=== PATIENT | female | born 1965 | race African-American/Black ===

== ENCOUNTER 2017-12-11 11:23 | Inpatient (IN) ==
[2017-12-11] MEDS ORDERED: ALBUTEROL/IPRATROPIUM 3 ML NEB RESP TX STA (11:57)
[2017-12-11] MEDS ORDERED: methylPREDNISolone SOD SUC 125 MG/2 ML VIAL IV STA (11:57)
[2017-12-11] MEDS ORDERED: ALBUTEROL 2.5 MG/3 ML NEB RESP TX STA ×2 (11:58)
[2017-12-11 12:24] LABS: Basophils % 0.7 % (0.0-0.8); Eosinophils # 0.4 10*3/uL (0.0-0.87); Eosinophils % 8.7 % (0.00-10.9); Hematocrit 35.4 VOL% (35.7-47.0); Hemoglobin 11.7 GM/DL (12.0-16.0); Immature Granulocytes % 0.2 %; Immature Granulocytes Absolute 0.01 #; Lymphocytes # 1.2 10*3/uL (1.4-4.0); Lymphocytes % 28.6 % (21.3-54.2); Mean Corpuscular HGB Conc 33.1 GM/DL (32-36); Mean Corpuscular Hemoglobin 26 PG (27-34); Mean Corpuscular Volume 79.6 FL (87-102); Mean Platelet Volume 10.4 FL (9.6-12.0); Monocytes # 0.6 10*3/uL (0.11-0.8); Monocytes % 15.1 % (1.7-12.7); Neutrophils # 1.9 10*3/uL (1.4-7.4); Neutrophils % 46.7 % (38.7-73.9); Platelet Count 215 T/CUMM (130-400); Red Blood Count 4.45 MC/CUMM (3.8-5.5); Red Cell Distribution Width 14.2 % (9.3-17.3); White Blood Count 4.2 T/CUMM (4-12)
[2017-12-11 12:40] LABS: Apearance,Urine CLEAR (Clear); Bilirubin,Urine Negative (Negative); Blood, Urine Small mg/dL (Negative); Glucose,Urine (UA) Negative (Negative); Ketones,Urine Negative (Negative); Nitrite,Urine Negative (Negative); Protein,Urine 100 MG/DL; Squamous Epithelial Cell,Urine Occasional /HPF (0-10); Urine Color Straw (Yellow); Urine Specific Gravity 1.005 (1.001-1.035); Urine Urobilinogen < 2.0 EU/DL (0.2-1.0); WBC,Urine <1 /HPF (0-6)
[2017-12-11 12:46] LABS: Band Neutrophils 2 % (0-10); Eosinophils 7 % (0-10); Hypochromasia 1+; Lymphocytes 24 % (20-55); Microcytosis 1+; Segmented Neutrophils 57 % (50-85); Total Cells Counted 100
[2017-12-11 12:47] LABS: Platelet Estimate Normal
[2017-12-11 12:48] LABS: Calcium 8.6 MG/DL (8.5-10.1); Potassium 4.2 MMOL/L (3.5-5.1)
[2017-12-11] MEDS ORDERED: ACETAMINOPHEN 325 MG TABLET PO PRN (14:02)
[2017-12-11] MEDS ORDERED: ONDANSETRON 4 MG/2 ML VIAL IV PRN (14:02)
[2017-12-11] MEDS ORDERED: ALBUTEROL 2.5 MG/3 ML NEB RESP TX PRN (15:20)
[2017-12-11] MEDS: methylPREDNISolone SOD SUC 125 MG/2 ML VIAL IV SCH (18:30)
[2017-12-11] MEDS: MONTELUKAST 10 MG TABLET PO SCH (20:22)
[2017-12-11] MEDS: ALBUTEROL 2.5 MG/3 ML NEB RESP TX PRN (23:05)
[2017-12-12] MEDS: methylPREDNISolone SOD SUC 125 MG/2 ML VIAL IV SCH ×4 (01:59→19:09)
[2017-12-12 05:22] LABS: Hematocrit 33.6 VOL% (35.7-47.0); Hemoglobin 11.4 GM/DL (12.0-16.0); Immature Granulocytes Absolute 0.04 #; Lymphocytes # 0.8 10*3/uL (1.4-4.0); Lymphocytes % 19.7 % (21.3-54.2); Mean Corpuscular HGB Conc 33.9 GM/DL (32-36); Mean Corpuscular Hemoglobin 26 PG (27-34); Mean Corpuscular Volume 77.1 FL (87-102); Mean Platelet Volume 11.2 FL (9.6-12.0); Monocytes # 0.1 10*3/uL (0.11-0.8); Monocytes % 1.9 % (1.7-12.7); Neutrophils # 3.2 10*3/uL (1.4-7.4); Neutrophils % 77.4 % (38.7-73.9); Platelet Count 226 T/CUMM (130-400); Red Blood Count 4.36 MC/CUMM (3.8-5.5); White Blood Count 4.1 T/CUMM (4-12)
[2017-12-12 05:39] LABS: Calcium 8.5 MG/DL (8.5-10.1); Osmolality,Calculated 283.4 MOS/KG (273-304); Potassium 4.1 MMOL/L (3.5-5.1)
[2017-12-12 06:00] LABS: Hypochromasia 1+; Microcytosis 1+; Platelet Estimate Normal
[2017-12-12] MEDS: ALBUTEROL 2.5 MG/3 ML NEB RESP TX PRN (06:06)
[2017-12-12] MEDS: ASPIRIN EC 81 MG TABLET PO SCH (10:10)
[2017-12-12] MEDS: PANTOPRAZOLE 40 MG TABLET PO SCH (10:11)
[2017-12-12] MEDS: ALBUTEROL/IPRATROPIUM 3 ML NEB RESP TX SCH ×2 (14:25→19:15)
[2017-12-12] MEDS: MONTELUKAST 10 MG TABLET PO SCH (21:15)
[2017-12-13] MEDS: methylPREDNISolone SOD SUC 125 MG/2 ML VIAL IV SCH ×2 (00:44→06:10)
[2017-12-13] MEDS: ALBUTEROL/IPRATROPIUM 3 ML NEB RESP TX SCH ×4 (01:33→18:58)
[2017-12-13 06:17] LABS: Basophils % 0.1 % (0.0-0.8); Hemoglobin 11.2 GM/DL (12.0-16.0); Immature Granulocytes % 0.8 %; Immature Granulocytes Absolute 0.09 #; Lymphocytes % 8.9 % (21.3-54.2); Mean Corpuscular HGB Conc 32.9 GM/DL (32-36); Mean Corpuscular Hemoglobin 26 PG (27-34); Mean Corpuscular Volume 79.3 FL (87-102); Mean Platelet Volume 11.1 FL (9.6-12.0); Monocytes # 0.4 10*3/uL (0.11-0.8); Monocytes % 3.1 % (1.7-12.7); Neutrophils # 10.2 10*3/uL (1.4-7.4); Neutrophils % 87.1 % (38.7-73.9); Platelet Count 241 T/CUMM (130-400); Red Blood Count 4.29 MC/CUMM (3.8-5.5); Red Cell Distribution Width 14.4 % (9.3-17.3); White Blood Count 11.7 T/CUMM (4-12)
[2017-12-13 06:45] LABS: Calcium 8.3 MG/DL (8.5-10.1); Osmolality,Calculated 286.4 MOS/KG (273-304); Potassium 3.8 MMOL/L (3.5-5.1)
[2017-12-13 06:49] LABS: Band Neutrophils 3 % (0-10); Hypochromasia 1+; Lymphocytes 8 % (20-55); Microcytosis 1+; Nucleated Red Blood Cells 1 (0-5); Platelet Estimate Normal; Segmented Neutrophils 88 % (50-85); Total Cells Counted 100
[2017-12-13] MEDS: PANTOPRAZOLE 40 MG TABLET PO SCH (09:13)
[2017-12-13] MEDS: ASPIRIN EC 81 MG TABLET PO SCH (09:13)
[2017-12-13] MEDS: methylPREDNISolone SOD SUC 40 MG/1 ML VIAL IV SCH ×3 (09:16→21:33)
[2017-12-13] MEDS: FLUTICASONE/SALMETEROL 100-50 DISKUS 14 DOSE INH SCH ×2 (15:10→21:34)
[2017-12-13] MEDS: MONTELUKAST 10 MG TABLET PO SCH (21:33)
[2017-12-14] MEDS: ALBUTEROL/IPRATROPIUM 3 ML NEB RESP TX SCH ×2 (01:13→07:44)
[2017-12-14] MEDS: methylPREDNISolone SOD SUC 40 MG/1 ML VIAL IV SCH ×2 (03:18→09:13)
[2017-12-14] MEDS: ASPIRIN EC 81 MG TABLET PO SCH (09:13)
[2017-12-14] MEDS: PANTOPRAZOLE 40 MG TABLET PO SCH (09:13)
[2017-12-14] MEDS: FLUTICASONE/SALMETEROL 100-50 DISKUS 14 DOSE INH SCH (09:14)
[2017-12-14 11:16] VITALS: BP 111/59
== END 2017-12-14 12:03 | disposition home or self-care (01) | DRG 141 ==
LOC: N.ED 11:23 → N.EDINP 13:48 → SUATTDRO 13:48 → N.EDINP 16:10 → N.5E 17:43
PROVIDERS: ADMIT Nurse Practitioner; ATTEND Internal Medicine Geriatric Medicine